=== PATIENT | female | born 1990 | race Two or more races ===

== ENCOUNTER 2016-09-05 19:25 | Emergency (ER) | payer OTHER ==
--- NOTE | 2016-09-05 21:07 | ER Document Report ---
ED Medical Screen (RME) - General Chief Complaint: Abdominal Cramping Stated Complaint: /ABDOMINAL/BACK PAIN Time seen by provider: 21:05 Mode of Arrival: Ambulatory Information source: Patient Notes: 25 female presents to ED for cramping in the abdomen and lower back. She states that her last menstrual period was July 21. She's had positive home test. She has not had a test at the doctor's office as yet. Denies vaginal bleeding or vomiting. Patient states she has had some nausea. I have greeted and performed a rapid initial assessment of this patient. A comprehensive ED assessment and evaluation of the patient, analysis of test results and completion of medical decision making process will be conducted by an additional ED providers.
[2016-09-05 21:30] LABS: ABSOLUTE BASOPHILS # (AUTO) 0.1 10^3/uL (0.0-0.2); ABSOLUTE EOSINOPHILS # (AUTO) 0.3 10^3/uL (0.0-0.6); ABSOLUTE MONOCYTES (AUTO) 0.7 10^3/uL (0.1-1.4); BASOPHILS % (AUTO) 0.6 % (0-2); EOSINOPHILS % (AUTO) 2.3 % (0-6); HEMATOCRIT 37.8 % (36.0-47.0); HEMOGLOBIN 12.8 g/dL (12.0-15.5); HGB HCT DIFFERENCE 0.6; LYMPHOCYTES % (AUTO) 25.1 % (13-45); MEAN CORPUSCULAR HEMOGLOBIN 29.6 pg (27.0-33.4); MEAN CORPUSCULAR VOLUME 87 fl (80-97); MONOCYTES % (AUTO) 5.8 % (3-13); RED BLOOD COUNT 4.34 10^6/uL (3.72-5.28); RED CELL DISTRIBUTION WIDTH 12.3 % (11.5-14.0); SEGMENTED NEUTROPHILS % (AUTO) 66.2 % (42-78)
[2016-09-05 21:39] LABS: APPEARANCE,URINE CLEAR; BILIRUBIN,URINE NEGATIVE (NEGATIVE); GLUCOSE, URINE NEGATIVE (NEGATIVE); KETONES,URINE 20 mg/dL (NEGATIVE); LEUKOCYTE ESTERASE,URINE NEGATIVE (NEGATIVE); NITRITE,URINE NEGATIVE (NEGATIVE); PROTEIN,URINE NEGATIVE (NEGATIVE); URINE SPECIFIC GRAVITY 1.004; UROBILINOGEN,URINE NEGATIVE mg/dL (<2.0)
[2016-09-05 21:51] LABS: ALANINE AMINOTRANSFERASE 39 U/L (9-52); ALBUMIN 4.6 g/dL (3.5-5.0); ALKALINE PHOSPHATASE 57 U/L (38-126); ANION GAP 12 (5-19); ASPARTATE AMINO TRANSFERASE 22 U/L (14-36); BILIRUBIN,TOTAL 0.7 mg/dL (0.2-1.3); BLOOD UREA NITROGEN 6 mg/dL (7-20); CALCIUM 10.4 mg/dL (8.4-10.2); CARBON DIOXIDE 26 mmol/L (22-30); CHLORIDE 101 mmol/L (98-107); CREATININE RESULT 0.48 mg/dL (0.52-1.25); GLUCOSE 97 mg/dL (75-110); POTASSIUM 3.6 mmol/L (3.6-5.0); SODIUM 138.9 mmol/L (137-145)
--- NOTE | 2016-09-06 01:15 | ER Document Report ---
ED GI/ - General Mode of Arrival: Ambulatory Information source: Patient TRAVEL OUTSIDE OF THE [place] IN LAST 30 DAYS: No - HPI Patient complains to provider of: Abdominal pain, Other - lower back pain Onset: This morning Location: Low back, Suprapubic Associated symptoms: Other - see HPI <DASH PLAZA - Last Filed: 09/06/16 02:50> <LUIS FUENTES - Last Filed: 09/06/16 05:28> - General Chief Complaint: Abdominal Cramping Stated Complaint: /ABDOMINAL/BACK PAIN Notes: 25 year old female presents to the ED complaining of abdominal cramping and lower back pain that started this morning. Patient additionally complains of nausea, but denies any vaginal bleeding. Patient has taken home tests which have been positive. Patient's last menstrual period was in July 2016. Patient has not had an ultrasound performed during her . (DASH PLAZA) - Related Data Allergies/Adverse Reactions: Penicillins Allergy (Verified 09/05/16 21:06) Past Medical History - General Information source: Patient - Social History Smoking Status: Unknown if Ever Smoked Family History: Reviewed & Not Pertinent Renal/ Medical History: Denies: Hx Peritoneal Dialysis - Immunizations Hx Diphtheria, Pertussis, Tetanus Vaccination: Yes <DASH PLAZA - Last Filed: 09/06/16 02:50> Review of Systems - Review of Systems Constitutional: No symptoms reported EENT: No symptoms reported Cardiovascular: No symptoms reported Respiratory: No symptoms reported Gastrointestinal: See HPI, Abdominal pain Genitourinary: No symptoms reported Female Genitourinary: See HPI, Last menstrual period - July 2016, Musculoskeletal: See HPI, Back pain - lower Skin: No symptoms reported Hematologic/Lymphatic: No symptoms reported Neurological/Psychological: No symptoms reported -: Yes All other systems reviewed and negative <DASH PLAZA - Last Filed: 09/06/16 02:50> Physical Exam - Vital signs Interpretation: Normal - General General appearance: Appears well, Alert - HEENT Head: Normocephalic, Atraumatic Eyes: Normal Pupils: PERRL - Respiratory Respiratory status: No respiratory distress Chest status: Nontender Breath sounds: Normal Chest palpation: Normal - Cardiovascular Rhythm: Regular Heart sounds: Normal auscultation Murmur: No - Abdominal Inspection: Normal Distension: No distension Bowel sounds: Normal Tenderness: Tender - Mild suprapubic Organomegaly: No organomegaly - Back Back: Normal, Nontender - Extremities General upper extremity: Normal inspection, Nontender, Normal color, Normal ROM , Normal temperature General lower extremity: Normal inspection, Nontender, Normal color, Normal ROM , Normal temperature, Normal weight bearing. No: Tahmina's sign - Neurological Neuro grossly intact: Yes Cognition: Normal Orientation: AAOx4 Angel Coma Scale Eye Opening: Spontaneous Angel Coma Scale Verbal: Oriented Angel Coma Scale Motor: Obeys Commands Angel Coma Scale Total: 15 Speech: Normal Motor strength normal: LUE, RUE, LLE, RLE Sensory: Normal - Psychological Associated symptoms: Normal affect, Normal mood - Skin Skin Temperature: Warm Skin Moisture: Dry Skin Color: Normal <LUIS FUENTES - Last Filed: 09/06/16 05:28> - Vital signs Vitals: Temp Pulse Resp BP Pulse Ox 98.4 F 84 18 115/73 100 09/05/16 21:06 09/05/16 21:06 09/05/16 21:06 09/05/16 21:06 09/05/16 21:06 Course - Laboratory Result Diagrams: 09/05/16 21:15 09/05/16 21:15 <DASH PLAZA - Last Filed: 09/06/16 02:50> - Laboratory Result Diagrams: 09/05/16 21:15 09/05/16 21:15 - Diagnostic Test Radiology reviewed: Reports reviewed <LUIS FUENTES - Last Filed: 09/06/16 05:28> - Re-evaluation Re-evalutation: 09/06/16 Patient is 7 weeks . Blood work and urine within normal limits. Patient is instructed to follow-up with women's health. They'll for discharge. Continue vitamin. Stable for discharge home. Understands agrees with plan. (LUIS FUENTES) - Vital Signs Vital signs: Temp Pulse Resp BP Pulse Ox 97.5 F 75 16 109/68 100 09/06/16 02:52 09/06/16 02:52 09/06/16 02:52 09/06/16 02:52 09/06/16 02:52 - Laboratory Laboratory results interpreted by me: 03/09/05/16 09/05/16 21:15 21:15 21:15 WBC 12.0 H BUN 6 L Creatinine 0.48 L Calcium 10.4 H Beta HCG, Quant 446120.00 H Urine Ketones 20 H Discharge <DASH PLAZA - Last Filed: 09/06/16 02:50> <LUIS FUENTES - Last Filed: 09/06/16 05:28> - Discharge Clinical Impression: Qualifiers: Weeks of gestation: less than 8 weeks Qualified Code(s): Z3A.01 - Less than 8 weeks gestation of Condition: Stable Disposition: HOME, SELF-CARE Instructions: ([facility]), Pelvic Pain in ([facility]) Referrals: [facility] [Provider Group] - Follow up as needed Scribe Attestation: 09/06/16 05:28 I personally performed the services described in the documentation, reviewed and edited the documentation which was dictated to the scribe in my presence, and it accurately records my words and actions. (LUIS FUENTES) Scribe Documentation - Scribe Written by Scribe:: Alec Hooks, 09/06/2016 [id number] acting as scribe for :: Lady <DASH PLAZA - Last Filed: 09/06/16 02:50>
[2016-09-06 04:28] VITALS: BP 109/68
== END 2016-09-06 02:57 | disposition home or self-care (01) ==
LOC: ER 19:25
DX: R10.9 Unspecified abdominal pain (principal); M54.5 Low back pain; R11.0 Nausea; Z3A.01 Less than 8 weeks gestation of pregnancy
CPT/HCPCS: 36415; 76817; 80053; 81001; 84702; 85025; 87086; 99284